=== PATIENT | male | born 1975 ===

== ENCOUNTER 2016-11-10 16:34 | Emergency (ER) | payer OTHER ==
[2016-11-10 16:35] VITALS: BMI 30.7
[2016-11-10 17:03] VITALS: TEMP 98
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
[2016-11-10 18:47] VITALS: BP 160/97; PULSE 78; RESP 18
[2016-11-14 08:18] VITALS: O2SAT 97
== END 2016-11-10 18:47 | disposition home or self-care (01) ==
LOC: C.ER 16:34
DX: T14.90 Injury, unspecified (principal); V19.9XXA Pedal cyclist (driver) (passenger) injured in unspecified traffic accident, initial encounter; Y93.55 Activity, bike riding; I10 Essential (primary) hypertension; E11.9 Type 2 diabetes mellitus without complications; E78.00 Pure hypercholesterolemia, unspecified; F17.210 Nicotine dependence, cigarettes, uncomplicated

== ENCOUNTER 2017-09-04 10:34 | Emergency (ER) | payer OTHER ==
[2017-09-04 10:49] VITALS: BMI 30.2
[2017-09-04 10:52] VITALS: TEMP 98
--- NOTE | 2017-09-04 11:28 | C.PDOC ---
History Of Present Illness 42 y/o male presents to ED with c/o low back pain after lifting heavy box at work. Patient states pain is localized to left lumbar region and denies direct injury, dysuria, hematuria, saddle anesthesia, bowel/bladder incontinence or any other complaints at this time. Time Seen by Provider: 09/04/17 11:13 Chief Complaint (Nursing): Back Pain History Per: Patient History/Exam Limitations: no limitations Onset/Duration Of Symptoms: Days Current Symptoms Are (Timing): Still Present Quality Of Discomfort: "Pain" Past Medical History Reviewed: Historical Data, Nursing Documentation, Vital Signs Vital Signs: Last Vital Signs Temp 98.0 F 09/04/17 10:49 Pulse 87 09/04/17 12:37 Resp 20 09/04/17 12:37 BP 181/140 H 09/04/17 12:37 Pulse Ox 97 09/04/17 12:37 - Medical History PMH: Asthma, Diabetes, HTN, Hypercholesterolemia Surgical History: No Surg Hx - [facility] Procedures VACCINATION NEC (02/11/13) Family History: States: No Known Family Hx - Social History Hx Tobacco Use: Yes (light smoker) Hx Alcohol Use: No Hx Substance Use: No - Immunization History Hx Tetanus Toxoid Vaccination: No Hx Influenza Vaccination: No Hx Pneumococcal Vaccination: No Review Of Systems Except As Marked, All Systems Reviewed And Found Negative. Genitourinary: Negative for: Dysuria, Hematuria Musculoskeletal: Positive for: Back Pain Physical Exam - Physical Exam Appears: Non-toxic, No Acute Distress Skin: Warm, Dry, No Rash Head: Atraumatic, Normacephalic Eye(s): bilateral: Normal Inspection Oral Mucosa: Moist Neck: No Midline Cervical Tenderness, Supple Back: No CVA Tenderness, Paraspinal Tenderness (left), Other (left paralumbar tenderness) Extremity: Normal ROM, Capillary Refill (<2 seconds) Neurological/Psych: Oriented x3, Normal Motor, Normal Sensation ED Course And Treatment O2 Sat by Pulse Oximetry: 98 (RA) Pulse Ox Interpretation: Normal Medical Decision Making Medical Decision Making: xr neg. pt also requests refill of chronic htn, dm meds, did not tkae today. Disposition - Disposition Referrals: [facility] [Outside] [facility] [Outside] Billy Traore MD [Non-Staff] - Disposition: HOME/ ROUTINE Disposition Time: 12:00 Condition: STABLE Additional Instructions: please follow up with your doctor. return to er with worsening symptoms or concerns. you may need additional testing as an outpatient. Prescriptions: Cyclobenzaprine [Cyclobenzaprine HCl] 10 mg PO DAILY PRN #10 tab PRN Reason: Muscle Spasm Losartan [Cozaar] 50 mg PO DAILY #14 tab metFORMIN [glucOPHAGE] 500 mg PO BID #28 tab Naproxen [Naprosyn] 500 mg PO BID PRN #14 tablet PRN Reason: Pain, Mild (1-3) Instructions: Low Back Pain in Adults Forms: [facility] (Mongolian), Work Excuse - Clinical Impression Clinical Impression: Low back pain, Medication refill - Scribe Statement The provider has reviewed the documentation as recorded by the Rudy Abreu All medical record entries made by the Breonnaibtawana were at my direction and personally dictated by me. I have reviewed the chart and agree that the record accurately reflects my personal performance of the history, physical exam, medical decision making, and the department course for this patient. I have also personally directed, reviewed, and agree with the discharge instructions and disposition.
--- NOTE | 2017-09-04 12:21 | RAD ---
Date of service: 09/04/2017 PROCEDURE: Radiographs of the Lumbar Spine. HISTORY: pain COMPARISON: Lumbar spine radiographs dated 10/06/2012. FINDINGS: BONES: Normal alignment. No listhesis. No fracture. DISC SPACES: Unremarkable. OTHER FINDINGS: None. IMPRESSION: Unremarkable radiographs of the lumbar spine.
[2017-09-04 12:39] VITALS: BP 181/140; PULSE 87; RESP 20
[2017-09-04 13:32] VITALS: O2SAT 98
== END 2017-09-04 13:10 | disposition home or self-care (01) ==
LOC: C.ER 10:34
DX: M54.5 Low back pain (principal); Z76.0 Encounter for issue of repeat prescription
CPT/HCPCS: 72100; 96372; 99283; J1885